=== PATIENT | female | born 1950 | race Caucasian/White ===

== ENCOUNTER 2017-06-01 17:13 | Inpatient (IN) | payer MEDICARE ==
[~2017-06-01] VITALS: Ht 160 cm; Wt 51.7 kg
[2017-06-01] MEDS ORDERED: SODIUM CHLORIDE 0.9% 1,000ML IVBOLUS ONE ×2 (17:30→18:30)
[2017-06-01] MEDS ORDERED: SODIUM CHLORIDE FLUSH 10ML SYR IVF ONE ×2 (17:30→18:30)
[2017-06-01 18:13] LABS: BLOOD UREA NITROGEN 10 mg/dL (7-18)
[2017-06-01] MEDS ORDERED: ONDANSETRON 2MG/ML, 2ML ONE (18:15)
[2017-06-01] MEDS ORDERED: MORPHINE SULFATE 4 MG/ML, 1ML ONE (18:15)
[2017-06-01] MEDS ORDERED: NS + 40MEQ KCL 1,000 ML IV ONE ×2 (18:19→18:29)
[2017-06-01] MEDS ORDERED: MORPHINE SULFATE 4 MG/ML, 1ML IVPush PRN (18:30)
[2017-06-01] MEDS ORDERED: ONDANSETRON 2MG/ML, 2ML IVPush ONE (18:30)
[2017-06-01] MEDS ORDERED: OMNIPAQUE 350 MG/ML, 100ML BOTTLE ONE (18:45)
[2017-06-01] MEDS ORDERED: METRONIDAZOLE PMX 500MG/100ML 100 ML ONE (19:22)
[2017-06-01] MEDS ORDERED: METRONIDAZOLE PMX 500MG/100ML 100 ML IV ONE (19:30)
[2017-06-01] MEDS ORDERED: CEFOTETAN PMX 2GM/50ML 50 ML IV ONE (19:30)
[2017-06-01] MEDS ORDERED: LIDOCAINE 1%, 20ML ONE (20:12)
[2017-06-01] MEDS ORDERED: FLUMAZENIL 0.1 MG/1 ML, 5ML ONE (20:32)
[2017-06-01] MEDS ORDERED: MIDAZOLAM 1 MG/ML, 5ML ONE (20:32)
[2017-06-01] MEDS ORDERED: FENTANYL PF 100 MCG/2ML ONE (20:32)
[2017-06-01] MEDS ORDERED: NALOXONE 1 MG/ML, 2ML ONE (20:32)
[2017-06-01] MEDS ORDERED: TEMAZEPAM 15 MG CAPSULE PO PRN (23:00)
[2017-06-01] MEDS ORDERED: ACETAMINOPHEN 325 MG TABLET PO PRN (23:00)
[2017-06-01] MEDS ORDERED: morphine SULFATE 10 MG/ML, 1ML IVPush PRN (23:00)
[2017-06-01] MEDS ORDERED: ENALAPRILAT 1.25 MG/ML, 2ML IVPush PRN (23:00)
[2017-06-01] MEDS: NS + 20MEQ KCL 1,000 ML IV SCH (23:48)
[2017-06-01] MEDS: HEPARIN 5,000 UNITS/ML, 1ML SQ SCH (23:57)
[2017-06-02 00:25] VITALS: BP 137/82
[2017-06-02 00:49] VITALS: BP 120/73
[2017-06-02] MEDS: METRONIDAZOLE PMX 500MG/100ML 100 ML IV SCH ×4 (02:05→21:47)
[2017-06-02] MEDS: HYDROcodone/APAP 5/325 TABLET PO PRN ×5 (04:58→21:52)
[2017-06-02 06:53] VITALS: BP 100/65
[2017-06-02] MEDS: HEPARIN 5,000 UNITS/ML, 1ML SQ SCH ×3 (08:21→23:22)
[2017-06-02] MEDS: CEFTRIAXONE PMX 2GM/50ML 50 ML IV SCH (09:50)
[2017-06-02] MEDS: ONDANSETRON ODT 4 MG PO PRN ×3 (13:48→21:54)
[2017-06-02 14:00] VITALS: BP 106/68
[2017-06-02] MEDS: NS + 20MEQ KCL 1,000 ML IV SCH ×2 (14:14→23:22)
[2017-06-02] MEDS ORDERED: POTASSIUM CHLORIDE 20 MEQ TAB.ER.PRT PO ONE (17:30)
[2017-06-02 18:40] VITALS: BP 103/69
[2017-06-03 01:21] VITALS: BP 114/67
[2017-06-03] MEDS: METRONIDAZOLE PMX 500MG/100ML 100 ML IV SCH ×4 (03:14→20:19)
[2017-06-03] MEDS: ONDANSETRON ODT 4 MG PO PRN ×3 (04:41→19:38)
[2017-06-03] MEDS: HYDROcodone/APAP 5/325 TABLET PO PRN ×3 (04:42→19:38)
[2017-06-03 06:01] LABS: ASPARTATE AMINO TRANSFERASE 10 U/L (15-37); BLOOD UREA NITROGEN 4 mg/dL (7-18)
[2017-06-03] MEDS: NS + 20MEQ KCL 1,000 ML IV SCH ×2 (08:25→20:19)
[2017-06-03] MEDS: HEPARIN 5,000 UNITS/ML, 1ML SQ SCH ×3 (08:26→23:04)
[2017-06-03 09:23] VITALS: BP 113/73
[2017-06-03] MEDS: CEFTRIAXONE PMX 2GM/50ML 50 ML IV SCH (11:09)
[2017-06-03 15:26] VITALS: BP 126/80
[2017-06-03 19:14] VITALS: BP 130/78
[2017-06-03] MEDS: NEUTRA PHOS K 250 MG TABLET PO SCH (20:19)
[2017-06-04 02:01] VITALS: BP 136/88
[2017-06-04] MEDS: METRONIDAZOLE PMX 500MG/100ML 100 ML IV SCH ×4 (02:33→20:57)
[2017-06-04] MEDS: HYDROcodone/APAP 5/325 TABLET PO PRN ×2 (02:36→23:26)
[2017-06-04] MEDS: ONDANSETRON ODT 4 MG PO PRN (02:39)
[2017-06-04] MEDS: NS + 20MEQ KCL 1,000 ML IV SCH ×2 (05:31→14:55)
[2017-06-04 07:29] VITALS: BP 131/82
[2017-06-04] MEDS: HEPARIN 5,000 UNITS/ML, 1ML SQ SCH ×3 (07:30→23:20)
[2017-06-04] MEDS: NEUTRA PHOS K 250 MG TABLET PO SCH ×2 (08:54→20:57)
[2017-06-04] MEDS: CEFTRIAXONE PMX 2GM/50ML 50 ML IV SCH (08:54)
[2017-06-04 14:18] VITALS: BP 100/57
[2017-06-04 14:20] VITALS: BP 151/97
[2017-06-04 20:00] VITALS: BP 134/92
[2017-06-05] MEDS: NS + 20MEQ KCL 1,000 ML IV SCH (01:59)
[2017-06-05 02:00] VITALS: BP 132/81
[2017-06-05] MEDS: METRONIDAZOLE PMX 500MG/100ML 100 ML IV SCH ×4 (03:27→21:02)
[2017-06-05 05:21] LABS: BLOOD UREA NITROGEN 3 mg/dL (7-18)
[2017-06-05 05:27] LABS: ASPARTATE AMINO TRANSFERASE 14 U/L (15-37)
[2017-06-05] MEDS: CEFTRIAXONE PMX 2GM/50ML 50 ML IV SCH (08:23)
[2017-06-05] MEDS: HEPARIN 5,000 UNITS/ML, 1ML SQ SCH ×3 (08:23→22:37)
[2017-06-05] MEDS: NEUTRA PHOS K 250 MG TABLET PO SCH ×2 (08:24→21:07)
[2017-06-05] MEDS: HYDROcodone/APAP 5/325 TABLET PO PRN ×2 (08:33→22:36)
[2017-06-05 10:10] VITALS: BP 146/87
[2017-06-05 15:11] VITALS: BP 147/92
[2017-06-05 19:26] VITALS: BP 149/94
[2017-06-06 03:00] VITALS: BP 132/90
[2017-06-06] MEDS: METRONIDAZOLE PMX 500MG/100ML 100 ML IV SCH ×2 (03:50→09:47)
[2017-06-06] MEDS: HYDROcodone/APAP 5/325 TABLET PO PRN (05:22)
[2017-06-06] MEDS: HEPARIN 5,000 UNITS/ML, 1ML SQ SCH (06:40)
[2017-06-06] MEDS: NEUTRA PHOS K 250 MG TABLET PO SCH (08:50)
[2017-06-06] MEDS: CEFTRIAXONE PMX 2GM/50ML 50 ML IV SCH (08:50)
[2017-06-06 09:47] VITALS: BP 154/94
[2017-06-06] MEDS ORDERED: CIPR500T87 PO (11:18)
[2017-06-06] MEDS ORDERED: METR500T PO (11:22)
[2017-06-06] MEDS ORDERED: AMLO2.5T PO (11:22)
[2017-06-06 11:43] VITALS: BP 158/97
== END 2017-06-06 12:15 | disposition home or self-care (01) | DRG 872 ==
LOC: ED 19:17 → EDIP 19:19 → 4NOR 20:08
PROVIDERS: ADMIT Internal Medicine; ATTEND Internal Medicine
PROC: 0W9J30Z Drainage of Pelvic Cavity with Drainage Device, Percutaneous Approach (ICD-10-PCS; principal; 2017-06-02)
DX: A41.9 Sepsis, unspecified organism (principal); K57.20 Diverticulitis of large intestine with perforation and abscess without bleeding; E44.0 Moderate protein-calorie malnutrition; E87.6 Hypokalemia; D64.9 Anemia, unspecified; I10 Essential (primary) hypertension; D75.89 Other specified diseases of blood and blood-forming organs; K59.1 Functional diarrhea; Z82.49 Family history of ischemic heart disease and other diseases of the circulatory system; E89.2 Postprocedural hypoparathyroidism; Y83.8 Other surgical procedures as the cause of abnormal reaction of the patient, or of later complication, without mention of misadventure at the time of the procedure
CPT/HCPCS: 36415; 49405; 49406; 74177; 80048; 80053; 81001; 82040; 83605; 83735; 84100; 84145; 85025; 87015; 87040; 87070; 87075; 87077; 87116; 87186; 87205; 87206; 87324; 96361; 96365; 96366; 96368; 96375; 99156; 99157; J0696; J1644; J2250; J2405; J3010; J3480; J3490; Q0162; Q9967; C1729; J2270; J2310; J7030; S0074

== ENCOUNTER → 2017-07-24 | Outpatient (CLI) | payer MEDICARE ==
[~2017-07-24] MED LIST: AMLO2.5T PO; CALC-60 PO; CIPR500T87 PO; GLUC1500 PO; LACT1CAP61 PO; METR500T PO; MULT-377 PO; [UNRECOGNIZED DRUG - OTHER] PO
[2017-07-24 15:37] LABS: HEMATOCRIT 37.8 % (34.6-47.8); HEMOGLOBIN 12.7 g/dL (11.7-16.4); WHITE BLOOD COUNT 18.5 x10^3/uL (3.4-10)
[2017-07-24 15:49] LABS: ASPARTATE AMINO TRANSFERASE 20 U/L (15-37); BLOOD UREA NITROGEN 11 mg/dL (7-18)
[2017-07-24 16:41] LABS: DIFF TOTAL CELLS COUNTED 100 CELL DIFF
[2017-07-24 16:43] LABS: ANISOCYTOSIS 1+
[2017-07-24 16:44] LABS: VERIFY COUNTS? YES
== END | disposition home or self-care (01) ==
LOC: STAR 14:35
PROVIDERS: ATTEND Surgery
DX: Z01.818 Encounter for other preprocedural examination (principal); K57.20 Diverticulitis of large intestine with perforation and abscess without bleeding; R00.0 Tachycardia, unspecified
CPT/HCPCS: 36415; 80053; 85025; 93005

== ENCOUNTER 2017-07-25 19:17 | Inpatient (IN) | payer MEDICARE ==
[~2017-07-25] VITALS: Ht 160 cm; Wt 49.2 kg
[2017-07-25] MEDS ORDERED: SODIUM CHLORIDE 0.9% 1,000 ML IV ONE (19:44)
[2017-07-25 19:57] LABS: HEMATOCRIT 35.6 % (34.6-47.8); HEMOGLOBIN 12.3 g/dL (11.7-16.4)
[2017-07-25] MEDS ORDERED: OMNIPAQUE 350 MG/ML, 100ML BOTTLE ONE (20:00)
[2017-07-25] MEDS ORDERED: SODIUM CHLORIDE FLUSH 10ML SYR IVF ONE (20:00)
[2017-07-25 20:09] LABS: BLOOD UREA NITROGEN 11 mg/dL (7-18)
[2017-07-25 20:32] LABS: DIFF TOTAL CELLS COUNTED 100 CELL DIFF
[2017-07-25 20:34] LABS: ANISOCYTOSIS 1+; VERIFY COUNTS? YES
[2017-07-25] MEDS ORDERED: MORPHINE SULFATE 4 MG/ML, 1ML ONE (21:02)
[2017-07-25] MEDS ORDERED: ONDANSETRON 2MG/ML, 2ML ONE (21:02)
[2017-07-25] MEDS ORDERED: METRONIDAZOLE PMX 500MG/100ML 100 ML ONE (21:18)
[2017-07-25] MEDS ORDERED: CIPROFLOXACIN/PMX 400MG/200ML 200 ML ONE (21:18)
[2017-07-25] MEDS ORDERED: MORPHINE SULFATE 4 MG/ML, 1ML IVPush PRN (21:30)
[2017-07-25] MEDS ORDERED: CIPROFLOXACIN/PMX 400MG/200ML 200 ML IV ONE (21:30)
[2017-07-25] MEDS ORDERED: POTASSIUM CHLORIDE 40 MEQ in SODIUM CHLORIDE 0.9% 500 ML IV ONE (21:30)
[2017-07-25] MEDS ORDERED: SODIUM CHLORIDE 0.9% 1,000ML IVBOLUS ONE (21:30)
[2017-07-25] MEDS ORDERED: ONDANSETRON 2MG/ML, 2ML IVPush ONE (21:30)
[2017-07-25] MEDS ORDERED: hydrALAzine 20 MG/ML, 1ML IVPush PRN (21:30)
[2017-07-25] MEDS ORDERED: PROMETHAZINE 25 MG/ML, 1ML IM PRN (21:30)
[2017-07-25] MEDS ORDERED: METRONIDAZOLE PMX 500MG/100ML 100 ML IV ONE (21:30)
[2017-07-25 22:44] VITALS: BP 124/77
[2017-07-25] MEDS ORDERED: LEVOFLOXACIN/PMX 750MG/150ML 150 ML IV SCH (23:00)
[2017-07-25] MEDS: ENOXAPARIN 40 MG/0.4 ML SQ SCH (23:22)
[2017-07-26] MEDS: morphine SULFATE 10 MG/ML, 1ML IVPush PRN ×6 (00:33→23:07)
[2017-07-26 00:40] VITALS: BP 124/77
[2017-07-26 02:44] VITALS: BP 101/63
[2017-07-26] MEDS: METRONIDAZOLE PMX 500MG/100ML 100 ML IV SCH ×4 (04:11→21:09)
[2017-07-26 05:04] LABS: HEMATOCRIT 29.5 % (34.6-47.8); HEMOGLOBIN 10.2 g/dL (11.7-16.4); WHITE BLOOD COUNT 13.4 x10^3/uL (3.4-10)
[2017-07-26 05:09] LABS: BLOOD UREA NITROGEN 6 mg/dL (7-18)
[2017-07-26] MEDS: SODIUM CHLORIDE 0.9% 1,000 ML IV SCH ×3 (05:53→21:09)
[2017-07-26 06:35] VITALS: BP 117/70
[2017-07-26] MEDS ORDERED: CEFTRIAXONE PMX 1GM/50ML 50 ML IV SCH (09:00)
[2017-07-26] MEDS: PANTOPRAZOLE 40 MG IV IVPush SCH (09:25)
[2017-07-26 14:14] VITALS: BP 119/75
[2017-07-26 19:26] VITALS: BP 147/87
[2017-07-26] MEDS: ENOXAPARIN 40 MG/0.4 ML SQ SCH (21:10)
[2017-07-27 01:02] VITALS: BP 121/81
[2017-07-27] MEDS: SODIUM CHLORIDE 0.9% 1,000 ML IV SCH ×3 (03:47→20:47)
[2017-07-27] MEDS: METRONIDAZOLE PMX 500MG/100ML 100 ML IV SCH ×4 (03:50→22:04)
[2017-07-27] MEDS: morphine SULFATE 10 MG/ML, 1ML IVPush PRN ×2 (05:00→18:33)
[2017-07-27 05:59] LABS: HEMATOCRIT 29.7 % (34.6-47.8); HEMOGLOBIN 10.2 g/dL (11.7-16.4); WHITE BLOOD COUNT 8.3 x10^3/uL (3.4-10)
[2017-07-27 06:04] LABS: BLOOD UREA NITROGEN 3 mg/dL (7-18)
[2017-07-27 07:08] VITALS: BP 120/74
[2017-07-27] MEDS: PANTOPRAZOLE 40 MG IV IVPush SCH (07:20)
[2017-07-27 15:06] VITALS: BP 153/86
[2017-07-27 19:03] VITALS: BP 162/97
[2017-07-27] MEDS: ENOXAPARIN 40 MG/0.4 ML SQ SCH (22:04)
[2017-07-28] MEDS: LORazepam 1MG TABLET PO PRN (01:27)
[2017-07-28 01:30] VITALS: BP 155/88
[2017-07-28] MEDS: SODIUM CHLORIDE 0.9% 1,000 ML IV SCH ×3 (03:59→20:06)
[2017-07-28] MEDS: METRONIDAZOLE PMX 500MG/100ML 100 ML IV SCH ×3 (03:59→16:03)
[2017-07-28 06:07] LABS: HEMATOCRIT 31.2 % (34.6-47.8); HEMOGLOBIN 10.7 g/dL (11.7-16.4); WHITE BLOOD COUNT 7.1 x10^3/uL (3.4-10)
[2017-07-28 07:00] LABS: BLOOD UREA NITROGEN < 1 mg/dL (7-18)
[2017-07-28 07:25] VITALS: BP 138/85
[2017-07-28 14:21] VITALS: BP 139/82
[2017-07-28 18:49] VITALS: BP 151/92
[2017-07-28] MEDS ORDERED: POTASSIUM CHLORIDE 40 MEQ in SODIUM CHLORIDE 0.9% 500 ML IV ONE (19:30)
[2017-07-28] MEDS: ENOXAPARIN 40 MG/0.4 ML SQ SCH (20:06)
[2017-07-28] MEDS: metroNIDAZOLE 500 MG TABLET PO SCH (20:06)
[2017-07-29] MEDS ORDERED: POTASSIUM CHLORIDE 40 MEQ in SODIUM CHLORIDE 0.9% 500 ML IV ONE (01:00)
[2017-07-29 01:08] VITALS: BP 149/88
[2017-07-29] MEDS: LORazepam 1MG TABLET PO PRN (01:11)
[2017-07-29 05:43] LABS: HEMATOCRIT 34.9 % (34.6-47.8); HEMOGLOBIN 11.7 g/dL (11.7-16.4); WHITE BLOOD COUNT 6.8 x10^3/uL (3.4-10)
[2017-07-29 06:19] LABS: BLOOD UREA NITROGEN < 1 mg/dL (7-18)
[2017-07-29 07:19] VITALS: BP 143/88
[2017-07-29] MEDS: metroNIDAZOLE 500 MG TABLET PO SCH (08:12)
[2017-07-29] MEDS ORDERED: METR500T PO (09:24)
[2017-07-29] MEDS ORDERED: POTASSIUM CHLORIDE 20 MEQ TAB.ER.PRT PO ONE (09:30)
[2017-07-29] MEDS ORDERED: HYDR-3240 PO (09:33)
== END 2017-07-29 11:51 | disposition home or self-care (01) | DRG 872 ==
LOC: ED 21:04 → EDIP 21:23 → 3NE 22:34
PROVIDERS: ADMIT Family Medicine; ATTEND Family Medicine
DX: A41.9 Sepsis, unspecified organism (principal); A04.7 Enterocolitis due to Clostridium difficile; K57.80 Diverticulitis of intestine, part unspecified, with perforation and abscess without bleeding; E87.6 Hypokalemia; I10 Essential (primary) hypertension; E21.3 Hyperparathyroidism, unspecified
CPT/HCPCS: 36415; 74177; 80048; 80076; 81001; 82040; 83605; 83735; 85025; 87040; 87086; 87324; 89055; 96361; 96365; 96375; J0696; J1650; J1956; J2405; J3480; Q9967; C9113; J2270; J7030; J7040